=== PATIENT | female | born 1935 | race Caucasian/White ===

== ENCOUNTER 2019-09-29 02:25 | Inpatient (IN) | payer OTHER ==
[2019-09-29] VITALS (38 sets, daily range): BP systolic 73–145; BP diastolic 27–124
[~2019-09-29] VITALS: Ht 165.1 cm; Wt 65.0 kg
--- NOTE | ~2019-09-29 | EMS ---
[address] [address] EMS Patient Care Report Name: TARYN JIMENEZ Room #: REG ELICIA Snider#: [id number] Admission: 09/29/19 Attend Phys: Discharge: Date of : 34 Report #: [id number] THIS REPORT FOR: //name// Report Transmitted: 09/29/2019 04:03 EMS Care Summary [place], [place]/[facility] Incident [id number] @ 09/29/2019 01:52 Incident Location [address] [place] [address] [address] Patient TARYN JIMENEZ Female, 84 Years 1935 Patient Address [address] [place] [address] [address] [place] [address] Patient History Dementia,Breast Cancer,Pneumonia, Patient Allergies No known allergies, Patient Medications Unknown, Chief Complaint NONE Disposition Transported No Lights/[facility] Dispatch Reason Sick Person Transported To [facility] Narrative RESPONDED TO SICK AT DETENTION. UPON [facility]RIVAL EMS WAITED FOR [place] STAFF TO BRING PT OUT DUE TO COVID 19 PRECAUTIONS. PT FOUND IN WHEELCHAIR ALERT TO BASELINE, NOT IN ANY RESPIRATORY DISTRESS. PT IS SHIVERING AND HAS NO [address] [address] EMS Patient Care Report Name: TARYN JIMENEZ Room #: REG ELICIA Snider#: [id number] Admission: 09/29/19 Attend Phys: Discharge: Date of : 34 Report #: [id number] COMPLAINTS. PT DENIES SOA OR CHEST PAIN. 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 [facility] STAFF REPORT PT RECENTLY DIAGNOSED WITH PNEUMONIA AND HAS DRY COUGH BUT COULD PROVIDE NO OTHER INFORMATION ABOUT PT. PT DOES NOT FEEL FEVERISH TO THE TOUCH. PT ASSISTED TO COT. VITALS AND 3 LEAD OBTAINED. PT PLACED ON O2 VIA NC AT 4 LPM WITH SOME IMPROVEMENT. PT TRANSPORTED TO [facility]. PT TEAM LIFTED TO BED AND HANDRAILS UP. REPORT GIVEN TO NURSE. Initial Vitals @02:12P: 227,SpO2: 78, @02:16P: 131,SpO2: 84, @02:15P: 131,SpO2: 90, @02:14P: 245,SpO2: 82, @02:14P: 197,R: 20,BP: 146/99,GCS: 14,SpO2: 90,Revised Trauma: 12, @02:15P: 132,SpO2: 93, @02:08P: 73,R: 20,BP: 112/60,Pain: 0/10,GCS: 14,Glucose: 115,SpO2: 85,Revised Trauma: 12, Assessments @02:05MENTAL:Confused,Person Oriented,SKIN:HEENT:Head/Face: No Abnormalities,Neck/Airway: No Abnormalities,LUNG SOUNDS:General: No Abnormalities,ABDOMEN:General: No Abnormalities,PELVIS//GI:Incontinence,EXTREMITIES:Left Leg: Weakness,Left Arm: Weakness,Right Leg: Weakness,Right Arm: Weakness,PULSE:NEURO:No Abnormalities,@02:11MENTAL:Person Oriented,Confused,SKIN:HEENT:Head/Face: No Abnormalities,Eyes: No Abnormalities,Neck/Airway: No Abnormalities,LUNG SOUNDS:General: No Abnormalities,Left Upper: No Abnormalities,Right Upper: No Abnormalities,Left Lower: No Abnormalities,Right Lower: No Abnormalities,ABDOMEN:General: No Abnormalities,Left Upper: No Abnormalities,Right Upper: No Abnormalities,Left Lower: No Abnormalities,Right Lower: No Abnormalities,PELVIS//GI:Incontinence,EXTREMITIES:Left Arm: Weakness,Left Leg: Weakness,Right Arm: Weakness,Right Leg: Weakness,PULSE:NEURO:No Abnormalities, Impression Pneumonia Procedures @02:05ALS AssessmentResponse: UnchangedSucceeded@02:08Oxygen FlowRate: 4 Device: Nasal Cannula (NC) Response: ImprovedSucceeded@02:103-Lead ECGResponse: UnchangedSucceeded Timeline 01:49,Call Received 01:49,Dispatch Notified 01:52,Dispatched [address] [address] EMS Patient Care Report Name: TARYN JIMENEZ Room #: REG ER Agatha#: [id number] Admission: 09/29/19 Attend Phys: Discharge: Date of : 34 Report #: [id number] 01:53,En Route 01:59,On Scene 02:05,At Patient 02:05,ALS Assessment,Response: UnchangedSucceeded, 02:08,Oxygen FlowRate: 4 Device: Nasal Cannula (NC) Response: ImprovedSucceeded, 02:08,BP: 112/60 M,PULSE: 73,RR: 20 R,SPO2: 85 Ox,ETCO2: ,B,PAIN: 0,GCS: 14, 02:10,3-Lead ECG,Response: UnchangedSucceeded, 02:12,Depart Scene 02:12,BP: / M,PULSE: 227,RR: R,SPO2: 78 Ox,ETCO2: ,BG: ,PAIN: ,GCS: , 02:14,BP: / M,PULSE: 245,RR: R,SPO2: 82 Ox,ETCO2: ,BG: ,PAIN: ,GCS: , 02:14,BP: 146/99 M,PULSE: 197,RR: 20 R,SPO2: 90 Ox,ETCO2: ,BG: ,PAIN: ,GCS: 14, 02:15,BP: / M,PULSE: 131,RR: R,SPO2: 90 Ox,ETCO2: ,BG: ,PAIN: ,GCS: , 02:15,BP: / M,PULSE: 132,RR: R,SPO2: 93 Ox,ETCO2: ,BG: ,PAIN: ,GCS: , 02:16,BP: / M,PULSE: 131,RR: R,SPO2: 84 Ox,ETCO2: ,BG: ,PAIN: ,GCS: , 02:31,At Destination 02:32,Call Closed Disclaimer v1.1 Copyright 2020 [employer] This EMS Care Summary contains data elements from the applicable legal record (which may be displayed differently). It is designed to provide pertinent information for the following purposes: continuity of care, clinical quality, and state data reporting. The complete legal record is available to ED staff and administrators of the receiving hospital in [employer] Patient Tracker. All data is provided "as is."
[~2019-09-29 02:25] MED LIST: ALLEGRA ALLERG180 MG PO; APAP500 PO; ARICEPT 5 MG TAB5 MG PO; ARICEPT10 M1 PO; ARICEPT10 MG PO; BAYER CHEWABLE81 MG PO; BENADRYL25 MG PO; CELEXA 20 MG TA20 MG PO; CELEXA10 MG PO; CEPACOL SORE T1 EAC8 PO; HEMORRHOID OINT60 G1; LIPITOR20 MG PO; LOPERAMIDE 2 MG2 M1 PO; MULTIVITAMINS PO; MULTIVITAMINS1 EAC7 PO; ONDANSETRON HCL4 M2 PO; PEPCID20 MG PO; PRILOSEC20 MG PO; PROTONIX40 M1 PO; VITAMIN D 5050000 I1 PO
[2019-09-29 03:57] LABS: BE(vivo) 0.3 mmol/L (-2 to +3); HCO3 23.9 mmol/L (22.0-26.0); PCO2 35.5 mmHg (35.0-45.0); PO2 80.9 mmHg (80.0-100.0); pH 7.446 (7.360-7.450); sO2 96.4 % (92.0-98.0)
[2019-09-29 04:06] LABS: HEMATOCRIT 39.7 % (37.0-47.0); MCH 32.1 pg (26.0-34.0); MCHC 32.6 g/dL (28.0-37.0); MCV 98.6 fL (80.0-100.0); PLATELET COUNT 87 thou/uL (150-400); RBC 4.03 mil/uL (4.20-5.00); RDW 20.9 % (10.5-14.5); WBC 11.4 thou/uL (4.0-11.0)
[2019-09-29 04:15] LABS: CALCIUM 10.8 mg/dL (8.5-10.1); CREATININE 3.4 mg/dL (0.6-1.0); POTASSIUM 3.4 mmol/L (3.5-5.1)
[2019-09-29 04:24] LABS: ALBUMIN 2.1 g/dL (3.4-5.0); TOTAL BILIRUBIN 0.9 mg/dL (<0.1-1.0); TOTAL PROTEIN 6.6 g/dL (6.4-8.2); TROPONIN-I 0.14 ng/mL (<0.06)
[2019-09-29 04:29] LABS: ABSOLUTE NEUTROPHILS 10.6 thou/uL (1.4-8.2); ANISOCYTOSIS 2+
[2019-09-29 04:30] LABS: PLATELET ESTIMATE DEC; POLYCHROMASIA 1+
--- NOTE | 2019-09-29 07:53 | NUR ---
PT ARRIVED FROM THE ED AT 0615 ACCOMPANIED BY ED RN. PT ALERT, PLEASANTLY CONFUSED. PT ABLE TO IDENTIFY SELF. DENIES ANY PAIN. JUST COMPLAINS OF BEING COLD. CONTINUOSLY SHAKING/TREMULOUS. TACHYCARDIC ON THE MONITOR. LUNGS DIMINISHED AND CLEAR. DIFFICULT TO OBTAIN O2 SAT. PT'S TOES DISCOLORED PURPLE. EXTREMETIES VERY COLD. ABX AND IVF STARTED.
--- NOTE | 2019-09-29 07:59 | NUR ---
Assumed care at 0700. PT is alert and oriented to self. PT is noted to have hypotension. BP systolic 80s with a MAP <65. Levophed was started and titrated up to [address] Hamilton on unit and was notified by night RN. Mila, PT's daughter in law, was contacted at 0743. She was given passcode and an update on PT condition. Imla stated she would be point of contact for PT because "she isn't working through this whole thing." Mila stated she would contact Rui and update him of PT condition. RN also spoke with Rui Brockke who is PT's son but not listed on designated contact. RN told Rui that without the passcode he could not have any medical information and he should contact Mila or Mu Vazquez who are the designated contact. Fall precautions in place. RN will continue to monitor.
--- NOTE | 2019-09-29 08:46 | EKG ---
[facility] [place] [address] ELECTROCARDIOGRAM REPORT Name: TARYN JIMENEZ Room #: 238-P ADM IN M.R.#: [id number] Admission: 09/29/19 Attend Phys: Tim Floyd MD Discharge: Date of : 33 Report #: [id number] THIS REPORT FOR: cc: Bethel Israel MD, Srinath MD Lundgren,Paolo Edmond MD [facility] ~ THIS REPORT FOR: //name// [facility] ED Test Date: 2019-09-29 Test Time: 03:03:22 Pat Name: TARYN JIMENEZ Department: Room: [facility] Gender: F Armature Inspector: NO : 1935 Requested By: Darius Ahumada Order Number: [id number] MD: Paolo Cline Measurements Intervals [place] Rate: 132 P: 16 TX: 122 QRS: -26 QRSD: 84 T: 181 QT: 322 QTc: 477 Interpretive Statements Sinus tachycardia Nonspecific ST and T wave abnormality Baseline wander in lead(s) I,II,aVR Compared to ECG 01/24/2015 12:27:58 Atrial premature complex(es) no longer present Nonspecific change in the ST and T wave segments Electronically Signed On 09-29-2019 8:44:51 CDT by Paolo Cline [email or web address] <ELECTRONICALLY SIGNED> By: Paolo Cline MD, [facility] 09/29/1945 2 2 Paolo Cline MD, [facility] /EPI
[2019-09-29 09:48] LABS: INR 2.4; PROTIME 24.6 Seconds (9.3-11.4)
[2019-09-29 09:58] LABS: FIBRINOGEN 52.9 mg/dL (210-360)
[2019-09-29 10:32] LABS: URINE BLOOD 3+ (Negative); URINE CLARITY CLOUDY; URINE COLOR YELLOW; URINE GLUCOSE-RANDOM* NEGATIVE (Negative); URINE KETONES TRACE (Negative); URINE PROTEIN (DIPSTICK) 2+ (Negative); URINE SPECIFIC GRAVITY 1.025 (1.005-1.035)
[2019-09-29 10:34] LABS: URINE LEUKOCYTES-REFLEX 2+ (Negative); URINE NITRITE-REFLEX POSITIVE (Negative)
[2019-09-29 10:36] LABS: ICTOTEST (BILI CONFIRMATORY) Negative (Negative); URINE BILIRUBIN NEGATIVE (Negative)
[2019-09-29 10:37] LABS: SQUAMOUS >10 Many /LPF (0-3)
[2019-09-29 10:40] LABS: CASTS None Seen /LPF (None Seen); CRYSTALS None Seen /LPF (None Seen); URINE WBC-REFLEX >25 Many /HPF (0-5)
[2019-09-29 10:41] LABS: BACTERIA-REFLEX >30 Many /HPF (None Seen); URINE RBC 3-10 Few /HPF (0-2)
[2019-09-29 13:33] LABS: INR 2.7; PROTIME 27.4 Seconds (9.3-11.4)
--- NOTE | 2019-09-29 15:34 | NUR ---
VAT CONSULTED FOR A CL FOR THIS PT WITH PUI, CKD AND SEPSIS. A 6FRTLJACC PLACED RT IJ WITH TIP IN THE RT UPPER ATRIUM WITH NO ECTOPY.
[2019-09-29 15:46] LABS: BE(vivo) -3.3 mmol/L (-2 to +3); HCO3 21.6 mmol/L (22.0-26.0); PCO2 38.3 mmHg (35.0-45.0); pH 7.369 (7.360-7.450); sO2 75.9 % (92.0-98.0)
[2019-09-29 15:47] LABS: PO2 41.6 mmHg (80.0-100.0)
--- NOTE | 2019-09-29 16:36 | NUR ---
INITIAL ASSESSMENT: SW reviewed chart and spoke with attending physician. Pt was admitted from [facility] due to hypoxia. Pt is in Enhanced Isolation to r/o COVID-19. Pt with hx of dementia. MILANA spoke with pt's dtr-in-law, Mila, via phone. Introduced role of MILANA. 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 Pt is normally w/c bound at the facility. Pt is able to ambulate with a walker. Pt was not on O2 prior to admission. Plan is for pt to return to Centers when medically stable. transit planner to fax clinical info to facility tomorrow. MILANA is following to assist as needed with discharge planning.
--- NOTE | 2019-09-29 16:38 | NUR ---
FAXED CLINICAL UPDATE TO [facility] SPOKE WITH KAITLYNN IN ADM SHE RECEIVED UPDATE. DP TO FOLLOW.
[2019-09-29 17:04] LABS: CREATININE 3.4 mg/dL (0.6-1.0); POTASSIUM 3.5 mmol/L (3.5-5.1)
[2019-09-29 17:07] LABS: CALCIUM 8.7 mg/dL (8.5-10.1)
--- NOTE | 2019-09-29 17:38 | NUR ---
At [address] Givens in regards to consult for PT. RN informed Dr. Givens that the PT had only put out approximately 40 cc of urine since 0700. Provider ordered a 1000 ml bolus of 0.45% NS to be given once and he would re-evaluate the PT tomorrow morning. RN verbalized understanding. Dr. Hamilton was on unit and inserted an arterial line in the PT. Provider was successful at 2nd attempt. A small hematoma was noted around the right wrist where the first attempt was taken place. The wave form is noted to be in good standing however the arterial pressure differs greatly from the cuff pressure. Dr. Mccain was notified of this and he stated for RN to treat PT's blood pressure using the cuff. RN verbalized understanding. PT was transported to CT scan by 2 RNs and brought back to a new room. Family was notified. RN gave report to Arianna BARTLETT who verbalized understanding. Will continue to monitor.
--- NOTE | 2019-09-29 18:01 | NUR ---
RESULTS OF CT SCAN COMMUNICATED TO DR. BENOIT
--- NOTE | 2019-09-29 19:28 | NUR ---
UPDATED DR. TALBOT ON PATIENT STATUS. ORDERS TO START CVP.
[2019-09-30] VITALS (28 sets, daily range): BP systolic 91–142; BP diastolic 21–82
[2019-09-30 06:00] LABS: HEMATOCRIT 33.4 % (37.0-47.0); MCH 32.4 pg (26.0-34.0); MCHC 32.5 g/dL (28.0-37.0); MCV 99.6 fL (80.0-100.0); PLATELET COUNT 79 thou/uL (150-400); RBC 3.35 mil/uL (4.20-5.00); RDW 20.8 % (10.5-14.5); WBC 13.5 thou/uL (4.0-11.0)
--- NOTE | 2019-09-30 06:00 | NUR ---
PT RECEIVED 2 LITERS OF .5 NS FOR LOW UO AND LOW BP TONIGHT PER ORDER OF RENAL TITRATING LEVOPHED GTT. LUNGS COARSE WITH SCATTERED WHEEZING. OPTIFLOW 90 % LEVOPHED GTT CURRENTLY AT 7 MCG. 250 CC UO THIS SHIFT. 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 WELLER FOLLOWS COMMANDS. WILL CONT TO MONITOR
[2019-09-30 06:04] LABS: HEMOGLOBIN 10.9 gm/dL (12.0-15.0)
[2019-09-30 06:18] LABS: INR 1.7; PROTIME 17.4 Seconds (9.3-11.4)
[2019-09-30 06:26] LABS: CALCIUM 7.6 mg/dL (8.5-10.1); POTASSIUM 3.5 mmol/L (3.5-5.1); TROPONIN-I 0.16 ng/mL (<0.06)
[2019-09-30 07:49] LABS: ABSOLUTE NEUTROPHILS 12.6 thou/uL (1.4-8.2); ANISOCYTOSIS 2+; NUCLEATED RBCS 5 /100WBC; PLATELET ESTIMATE DECREASED; POLYCHROMASIA SLIGHT
[2019-09-30 08:27] LABS: BE(vivo) -8.4 mmol/L (-2 to +3); HCO3 17.1 mmol/L (22.0-26.0); PCO2 35.2 mmHg (35.0-45.0); PO2 77.8 mmHg (80.0-100.0); pH 7.304 (7.360-7.450); sO2 94.5 % (92.0-98.0)
[2019-09-30 14:04] LABS: ALBUMIN 1.7 g/dL (3.4-5.0); DIRECT BILIRUBIN 0.3 mg/dL (<0.1-0.2); TOTAL BILIRUBIN 0.7 mg/dL (<0.1-1.0); TOTAL PROTEIN 5.4 g/dL (6.4-8.2)
--- NOTE | 2019-09-30 15:03 | NUR ---
SW reviewed chart and spoke with attending physician. Pt's COVID-19 test was negative. Pt is currently on 15L of O2. Update provided to Centers liaison. SW is following to assist as needed with discharge planning.
[2019-09-30 17:43] LABS: BF NUCLEATED CELLS 441; BF RBC 3352
[2019-09-30 17:47] LABS: CLARITY SLIGHTLY CLOUDY; COLOR AMBER; TOTAL VOLUME 20 mL
[2019-09-30 18:57] LABS: SOURCE CHEST
[2019-09-30 18:59] LABS: BF MACROPHAGE 40; BF NEUTROPHILS 12
[2019-10-01] VITALS (50 sets, daily range): BP systolic 67–134; BP diastolic 37–80
[2019-10-01 04:39] LABS: BE(vivo) -8.4 mmol/L (-2 to +3); HCO3 15.6 mmol/L (22.0-26.0); PCO2 27.8 mmHg (35.0-45.0); PO2 62.4 mmHg (80.0-100.0); pH 7.366 (7.360-7.450); sO2 91.7 % (92.0-98.0)
[2019-10-01 05:14] LABS: APTT 36.4 Seconds (24.5-32.8); FIBRINOGEN 144.4 mg/dL (210-360); INR 1.1; PROTIME 11.2 Seconds (9.3-11.4)
[2019-10-01 05:15] LABS: ABSOLUTE NEUTROPHILS 9.1 thou/uL (1.4-8.2); BASOPHILS 0.1 % (0.0-2.0); HEMATOCRIT 32.6 % (37.0-47.0); HEMOGLOBIN 10.8 gm/dL (12.0-15.0); LYMPHOCYTES 2.1 % (24.0-44.0); MCH 32.8 pg (26.0-34.0); MCHC 33.2 g/dL (28.0-37.0); MCV 98.8 fL (80.0-100.0); MONOCYTES 5.7 % (1.0-8.0); PLATELET COUNT 82 thou/uL (150-400); POLYS 92.1 % (36.0-66.0); RDW 20.6 % (10.5-14.5); WBC 9.9 thou/uL (4.0-11.0)
--- NOTE | 2019-10-01 05:23 | NUR ---
ASSUMED CARE OF PATIENT AT 1900. CRYOPRECIPITATE INFUSED, TOLERATED WELL. WEANED O2 DOWN, BECAME CONFUSED, TACHYPNIC AND DESATTED AT 0330. PLACED BACK ON OPTIFLOW, ABGS DRAWN. RESTING MORE COMFORTABLY NOW. LEVOPHED TITRATED, SEE FLOWSHEET. WORKING TOWARDS POC GOALS.
[2019-10-01 05:27] LABS: ALBUMIN 1.7 g/dL (3.4-5.0); CALCIUM 7.8 mg/dL (8.5-10.1); CREATININE 2.5 mg/dL (0.6-1.0); PHOSPHORUS 2.6 mg/dL (2.5-4.9); POTASSIUM 3.3 mmol/L (3.5-5.1)
[2019-10-01 05:45] LABS: ALBUMIN 1.7 g/dL (3.4-5.0); DIRECT BILIRUBIN 0.1 mg/dL (<0.1-0.2); TOTAL BILIRUBIN 0.6 mg/dL (<0.1-1.0); TOTAL PROTEIN 5.5 g/dL (6.4-8.2)
--- NOTE | 2019-10-01 07:50 | NUR ---
RN assumed care at 0700. Assessment performed at 0728, see chart for further details. VSS. RN titrated levophed gtt down to 1 mcg/min. PT is alert and oriented to herself only. Stated the year was 2007, the president is a politician, and she is currently in a 3 bedroom home. PT states that she "feels nervous". RN asked what she was nervous about and PT shrugged her shoulders. Dr. Givens on unit at 0730. RN informed him of a sodium level of 134 and potassium of 3.4. Provider ordered for her IVF to be titrated to 70 mls/h and stated he would put in a supplement order. Dr. Best on unit to see PT at 0738. He stated to make sure the PT's biliary drain is being flushed BID with 10cc of NS. RN verbalized understanding. High fall risk precautions are in place. RN will continue to monitor.
[2019-10-01 08:27] LABS: SOURCE CHEST
[2019-10-01 08:28] LABS: SOURCE CHEST
[2019-10-01 08:32] LABS: SOURCE CHEST
--- NOTE | 2019-10-01 10:13 | NUR ---
PT was picking at her arterial line, biliary drain, and castillo catheter. RN attempted several times to distract PT from picking at her medical devices. RN re-oriented PT, asked her to fold towels, and turned on the television. Diversional activities were unsuccessful. Dr. Hamilton on unit to see PT. RN spoke with provider about placing mittens on the PT to help protect her lines. Provider stated okay. show design supervisor was notified at 1005. A left hand mitten was placed on PT at 1000. Education provided. RN will continue to monitor.
--- NOTE | 2019-10-01 14:01 | NUR ---
RN entered room to check on PT at 1315 and noted a half dollar size bright red drainage on the right hand mitten towards the wrist. There was also a quarter size amount of blood noted on PT's gown. RN took off the mitten and saw that the arterial line was out of place. RN immediately applied pressure with gauze. At 1332 hemostasis was obtained. The PT was cleaned up and bilateral wrist restraints were applied to PT as well as a new pair of mittens. Dr. Hamilton was paged through the answering service at [phone] to notify him of PT's condition. RN will continue to monitor.
--- NOTE | 2019-10-01 16:09 | NUR ---
RN entered room to perform 1600 assessment. RN temporarily removed restraints. PT tried to pinch nurse and tried to get out of RN's grasp. PT stated, "I'll call my buddies. You better release me!" RN educated PT about safety and restraints. PT is unable to understand teachings due to cognitive status. PT appears aggitated and refuses to drink water, reposition, or answer questions asked by staff. RN will continue to monitor.
[2019-10-01 20:54] LABS: MAGNESIUM 1.1 mg/dL (1.8-2.4); POTASSIUM 3.9 mmol/L (3.5-5.1)
[2019-10-02] VITALS (60 sets, daily range): BP systolic 84–146; BP diastolic 42–102
[2019-10-02 01:00] LABS: MAGNESIUM 2.1 mg/dL (1.8-2.4); POTASSIUM 3.9 mmol/L (3.5-5.1)
--- NOTE | 2019-10-02 01:19 | NUR ---
PATIENT INCREASINGLY CONFUSED, REMOVING RINGS. ALL RINGS PLACED IN SECURITY BAG (9 TOTAL). WILL NOTIFY FAMILY IN AM.
--- NOTE | 2019-10-02 04:47 | NUR ---
PATIENT BP SIGNIFICANTLY LOWER AT 2130, LEVOPHED GTT RESUMED TO KEEP MAP GREATER THAN 65. SEE FLOW SHEET FOR TITRATION.
[2019-10-02 05:56] LABS: HEMATOCRIT 28.2 % (37.0-47.0); HEMOGLOBIN 9.5 gm/dL (12.0-15.0); MCH 33.2 pg (26.0-34.0); MCHC 33.8 g/dL (28.0-37.0); MCV 98.5 fL (80.0-100.0); RBC 2.87 mil/uL (4.20-5.00); WBC 8.4 thou/uL (4.0-11.0)
[2019-10-02 06:16] LABS: ALBUMIN 2.3 g/dL (3.4-5.0); CREATININE 2.2 mg/dL (0.6-1.0)
[2019-10-02 09:08] LABS: BODY FLUID ALBUMIN 1.1 g/dL (Not Estab.); BODY FLUID GLUCOSE 156 mg/dL (()); BODY FLUID LDH 263 IU/L (())
[2019-10-02 14:07] LABS: BE(vivo) -8.8 mmol/L (-2 to +3); HCO3 17.3 mmol/L (22.0-26.0); PCO2 38.1 mmHg (35.0-45.0); PO2 57.6 mmHg (80.0-100.0); sO2 86.5 % (92.0-98.0)
[2019-10-02 14:08] LABS: pH 7.275 (7.360-7.450)
--- NOTE | 2019-10-02 15:08 | NUR ---
ASSUMED CARE AT 0700, ASSESSMENT AND VITAL SIGNS COMPLETED PER ICU PROTOCOL. DR. TALBOT ROUNDED THIS AM. DR. BIRMINGHAM ROUNDED THIS AM. DR. VICTORIA ROUNDED THIS AM. DR. BELLAMY ROUNDED THIS AM. DR. BELLAMY PAGED AND NOTIFIED OF PT EXPRESSING LABORED BREATHING. DR. BELLAMY AND RN DISCUSSED NECESSITY OF COMFORT CARE. DR. BELLAMY INSTRUCTED RN TO PAGE AND DISCUSS WITH DR. TALBOT WELL. RN PAGED DR. TALBOT AND UPDATED HIM ON PT'S CONDITION. DR. TALBOT SAID HE'LL CALL FAMILY AND DISCUSS PT'S CONDITION. GLEN (DAUGHTER IN LAW) CALLED RN, SAID SHE DISCUSSED PT WITH DR. TALBOT. GLEN EXPRESSED THAT DR. TALBOT NEEDS TO SPEAK WITH RAKAN (SON). RAKAN'S CELL PHONE NUMBER WAS PROVIDED TO RN BY GLEN. RN CALLED DR. TALBOT BACK AND RELAYED THE PHONE NUMBER. DR. TALBOT WILL SPEAK WITH RAKAN AND PROCEED WITH PLAN OF CARE.
[2019-10-02 18:07] LABS: HCO3 19.3 mmol/L (22.0-26.0); PCO2 29.5 mmHg (35.0-45.0); PO2 106.7 mmHg (80.0-100.0); pH 7.434 (7.360-7.450); sO2 98.1 % (92.0-98.0)
[2019-10-03] VITALS (16 sets, daily range): BP systolic 100–134; BP diastolic 48–75
[2019-10-03 04:39] LABS: ABSOLUTE NEUTROPHILS 7.2 thou/uL (1.4-8.2); BASOPHILS 0.2 % (0.0-2.0); HEMATOCRIT 28.8 % (37.0-47.0); HEMOGLOBIN 9.8 gm/dL (12.0-15.0); LYMPHOCYTES 1.6 % (24.0-44.0); MCH 33.2 pg (26.0-34.0); MCV 97.6 fL (80.0-100.0); MONOCYTES 5.4 % (1.0-8.0); PLATELET COUNT 91 thou/uL (150-400); POLYS 92.8 % (36.0-66.0); RBC 2.95 mil/uL (4.20-5.00); RDW 20.4 % (10.5-14.5); WBC 7.7 thou/uL (4.0-11.0)
[2019-10-03 05:00] LABS: FIBRINOGEN 136.1 mg/dL (210-360); INR 1.1; PROTIME 11.2 Seconds (9.3-11.4)
[2019-10-03 05:11] LABS: ALBUMIN 2.1 g/dL (3.4-5.0); CALCIUM 8.6 mg/dL (8.5-10.1); CREATININE 2.1 mg/dL (0.6-1.0); PHOSPHORUS 2.8 mg/dL (2.5-4.9); TOTAL BILIRUBIN 0.7 mg/dL (<0.1-1.0); TOTAL PROTEIN 5.3 g/dL (6.4-8.2)
[2019-10-03 05:40] LABS: HCO3 19.6 mmol/L (22.0-26.0); PCO2 30.6 mmHg (35.0-45.0); PO2 63.3 mmHg (80.0-100.0); pH 7.425 (7.360-7.450)
--- NOTE | 2019-10-03 07:28 | NUR ---
ASSUMED PATIENT CARE AT 1845. VITAL SIGNS MOSTLY STABLE WITH NURSE NOT PERCEIVING ANY PAIN OR NAUSEA ON BEHALF OF PATIENT. BREATHING STABLE ON BIPAP EVIDENCED BY ASSESSMENT AND CONTINUOUS SATURATION MONITOR. TURNS AND SKIN CARE PROVIDED FREQUENTLY. CONTINUE PLAN OF CARE.
--- NOTE | 2019-10-03 09:56 | NUR ---
Mu Vazquez called at 0932 to discuss PT condition with staff. Mu stated, "We've been discussing and we've decided to make her comfort care." RN asked Mu if he would like to speak with any of the providers and he stated, "that's not necessary but if they need to talk to me I'll give you my number." His phone number is [phone]. RN notified at 0937 of Mu's decision and provider stated he would put in comfort care orders and that he would be happy to speak with family if needed. RN sent Dr. Simpson a Recorded Future message at 0940 notifying him that Mu Vazquez decided to pursue comfort measures and Dr. Hamilton was made aware. Dr. Simpson acknowledged message at 0942. RN called Mu Vazquez at 0948 to notify him of visitor policy during this time and stated 2 visitors are allowed at a time as long as they are immediate familly and no children. Mr. Vazquez said "that won't be a problem it's just going to be my little brother Howard Vazquez and his Ros. They should be there around 4:00 PM they live in [place]." RN verbalized understanding. RN notified manager warehouse and covid quarry supervisor dimension stone of the expected visitors. Will continue to monitor.
--- NOTE | 2019-10-03 14:06 | NUR ---
SW reviewed chart and spoke with nursing and attending physician. Pt's family have chosen to initiate comfort care measures. Family will be coming in this afternoon around 1600. MILANA updated Centers liaison. SW is available to assist should needs arise.
--- NOTE | 2019-10-03 16:06 | NUR ---
RN spoke with Mila Vazquez at 1600 and asked if family had a preference on which home to use. Mila stated that the PT had everything pre-arranged with [facility] in [place], [place]. RN verbalized understanding. Will continue to monitor.
[2019-10-04] VITALS: BP 103/53
[2019-10-04 04:00] VITALS: BP 88/40
--- NOTE | 2019-10-04 05:16 | NUR ---
ASSUMED PT CARE AT 1900. PT IS UNRESPONSIVE AND ON COMFORT CARE. MORPHINE ADMINISTERED. ASSESSMENT COMPLETED AND DOCUMENTED. FALL PRECAUTION IN PLACE. CONTINUE TO MONITOR, NURSING POC.
[2019-10-04 08:00] VITALS: BP 85/33
[2019-10-04 11:54] VITALS: BP 74/46
--- NOTE | 2019-10-04 16:34 | NUR ---
PT IS ON COMFORT CARE , PT DID NOT HAVE S/S OF PAIN, RN HAD UPDATED PT'S INFORMATION , PT BP WAS CONTINUING LOW AND PT'S BREATHING IS VERY WEAKING, PT WAS AT 1430PM BY 2 RNS PRONOUNCEMENT ( PT'S BREATHING AND LIRA HAD STOPPED WORK AT 1430PM) , RN HAD CALLED HOSPITAL DR AND ALL CONSULTING PHYSICIANS ABOUT PT'S , RN HAD NOTIFIED PT'S FAMILY,RN had called nonor referral office, pt is not a candidate for organ and tissue donation, pt's body care had done at 1600pm, hospital safety officers pickler helper pt's body at 1640pm.
--- NOTE | 2019-10-06 13:08 | PATH ---
[facility] [place] [address] PATHOLOGY RPT PROCEDURE Name: TARYN JIMENEZ Room #: 245-P DIS IN M.R.#: [id number] Admission: 09/29/19 Date of : 33 Discharge: 10/04/19 Report #: [id number] Path Case #: [id number] Note [facility] Accession Number: [id number] TESTS RESULT FLAG UNITS REF RANGE LAB Clinician Provided Cytology Information No. of containers..01 Other (Miscellaneous) Source: [A] 01 RIGHT PLEURAL FLUID DIAGNOSIS: [A] 02 RIGHT PLEURAL FLUID POSITIVE FOR MALIGNANT CELLS. METASTATIC ADENOCARCINOMA (WITH INTRACELLULAR MUCIN) IS PRESENT. THIS INTERPRETATION INCLUDES EVALUATION OF A CELL BLOCK. COMMENT: Examination shows detached single markedly atypical cells with intracellular mucin. This is supported by a mucicarmine special stain which shows intracellular mucin as well as amidst a few cell groups. Most of the tumor cells are detached without gland formation. Multiple properly controlled immunohistochemical stains are performed on the cell block. The tumor cells show strong membranous reactivity within all of the cells with BerEP4. Scattered to rare cells are reactive to B72.3 or TAG72. Calretinin shows the reactive mesothelial cells in the background which are noted reactive to desmin supporting the reactive nature. CD68 shows scattered rare reactive macrophages present within the background. Dr. Nigel Eastman has seen this case and concurs with my diagnosis. Findings of this case are conveyed to Dr. Ned Simpson at approximately 11:37 am on 10/03/[address] Luís Best at 12:21 pm on the same day. (IUV:pit 10/03/2019) Pathologist ICD10: 02 J91.0 Signed out by: April Yen MD, Pathologist NPI- [id number] Performed by: Rosalba Lewis, Insole Reinforcer ([facility]) Gross description: 01 20ML, CLOUDY YELLOW, 1 TP 1 CB /LCS 10/03/2019 1147 Local FLAG LEGEND: L-Low Normal,H-High Normal,LL-Alert Low,HH-Alert High <-Panic Low,>-Panic High,A-Abnormal,AA-Critical Abnormal Performed at: [address] [address] PATHOLOGY RPT PROCEDURE Name: TARYN JIMENEZ Room #: 245-P DIS IN M.R.#: [id number] Admission: 09/29/19 Date of : 33 Discharge: 10/04/19 Report #: [id number] Path Case #: [id number] 01 COLEVANGELISTA [facility] [address] [place] [address] Patrick Mckeon MD, [address] [address] April Yen MD, Specimen Comment: A courtesy copy of this report has been sent to [phone], [phone] Specimen Comment: [phone], Specimen Comment: Report sent to ,DR ROMEOR / DR BENOIT Specimen Comment: A duplicate report has been generated due to demographic updates. Performed at: 01 [facility] [address] [place] [address] [address], [place] [id number] MD Patrick Mckeon MD Phone: [phone]
--- NOTE | 2019-10-07 10:31 | HC ---
[facility] [place] [address] CONSULTATION Name: TARYN JIMENEZ Room #: 245-P [facility] IN M.R.#: [id number] Admission: 09/29/19 Attend Phys: Kiel Mccain MD Discharge: 10/04/19 Date of : 33 Report #: [id number] THIS REPORT FOR: cc: Bethel Israel MD, Srinath MD Al-Absi,Antwon Jolley MD ~ CC: Kiel Israel DATE OF SERVICE: 09/30/2019 REASON FOR CONSULTATION: Elevated creatinine. REASON FOR PRESENTATION: Shortness of breath and hypoxia. HISTORY OF PRESENT ILLNESS: This is an 84-year-old with history of breast cancer, status post mastectomy in the past. She is also known to have hypertension. She has advanced dementia. We were not really sure about her baseline creatinine. She was sent from her nursing facility yesterday because of worsening hypoxia. She was admitted to the ICU and ruled out for COVID infection. She was found to have significant right-sided pleural effusion. Creatinine on presentation was elevated at 3.4. Her sodium was also elevated at 155. The patient appears to be in sepsis and required significant amount of IV fluid. She also required pressors. She is not able to provide me with her past medical history; however, I reviewed her medical records and it is stated that the patient carries a diagnosis of hypertension and hyperlipidemia. No nephrotoxins listed on her medications. She did have a CT of the abdomen and pelvis; however, this was noncontrasted. Primary team had asked me to assist with the acute kidney injury issues. PAST MEDICAL HISTORY: 1. Dementia. 2. Hypertension. 3. Anemia. 4. Bilateral mastectomy for breast cancer. MEDICATIONS: 1. Omeprazole. 2. Atorvastatin. 3. Famotidine. 4. Aricept. ALLERGIES: HORSE HAIR LISTED AN ALLERGY. REVIEW OF SYSTEMS: Limited due to the patient's dementia. [facility] [address] [place] [address] CONSULTATION Name: TARYN JIMENEZ Room #: [facility].#: [id number] Admission: 09/29/19 Attend Phys: Kiel Mccain MD Discharge: 10/04/19 Date of : 33 Report #: [id number] FAMILY HISTORY: Unobtainable given the patient's current mental status. SOCIAL HISTORY: Apparently, she resides in a nursing facility. No other details are available. PHYSICAL EXAMINATION: GENERAL: She is awake, in some respiratory distress. VITAL SIGNS: Temperature is 35.9, blood pressure is 142/75. HEAD AND NECK: No jugular venous distention. CHEST: Decreased air entry on the right side very limited. Rhonchi present. CARDIOVASCULAR: No rub detected. ABDOMEN: Soft. EXTREMITIES: Lower extremities, +3 edema. LABORATORY DATA: Laboratory values reviewed. White blood cell count is 13.5, hemoglobin is 10.9, platelet is 79. Sodium is down to 138, potassium is 3.5, BUN 61, creatinine is 3.0. ASSESSMENT, IMPRESSION AND PLAN: 1. Acute kidney injury. 2. Hypotension with what seems to be sepsis. 3. Urinary tract infection. 4. Right-sided pleural effusion. 5. Bilateral mastectomy. 6. Alarming findings on the CT abdomen with an adrenal mass, highly suggestive of either an adrenal carcinoma versus metastasis. 7. Hypernatremia. 8. From the renal side, the patient's renal function seems to be improving. Her serum sodium has rectified. Continue with the D5W; however, slow the rate today. 9. Continue with antibiotic coverage. 10. Discussed with the family current patient's condition. 11. Follow cultures. 12. Right-sided pleural effusion with an adrenal mass in a patient with known breast cancer, status post mastectomy, highly suggestive of an underlying malignancy and we will need to discuss with the family members scope of care. <ELECTRONICALLY SIGNED> By: Antwon Givens MD 10/07/19 1031 [id number] Antwon Givens MD /nt
--- NOTE | 2019-10-07 12:09 | HC ---
[facility] [place] [address] CONSULTATION Name: TARYN JIMENEZ Room #: [facility] M.R.#: [id number] Admission: 09/29/19 Attend Phys: Kiel Mccain MD Discharge: 10/04/19 Date of : 33 Report #: [id number] THIS REPORT FOR: cc: Bethel Israel MD, Srinath MD Gates,Luís Berman MD ~ CC: Kiel Israel DATE OF SERVICE: 09/30/2019 CONSULTING PHYSICIAN: Dr. Best. REASON FOR CONSULTATION: Cholecystitis. ASSESSMENT: 1. Cholecystitis. 2. Possible cholangitis. 3. Right-sided pneumonia. 4. Right-sided pleural effusion. 5. Acute respiratory failure, severe. 6. Septic shock. 7. DIC. 8. Lactic acidosis. 9. Acute kidney injury. 10. History of pulmonary fibrosis. 11. Encephalopathy. 12. Dementia. 13. Large left adrenal mass. 14. Thrombocytopenia, low fibrinogen, elevated INR. RECOMMENDATIONS: 1. Thank you for the consultation. I will follow along. 2. Discussed the case with Interventional Radiology and Pulmonary. Recommend proceeding with placement of percutaneous cholecystostomy drain. We did discuss placement of a PTC catheter as well, given the concern about cholangitis, we will hold off on this for now and consider it when more stable if the intrahepatic biliary ducts become dilated and still suspect cholangitis. 3. IR will also drain the right pleural effusion at the time of the perc evangelina. 4. We will order cryoprecipitate prior to the procedure as well as some more vitamin K. 5. Continue IV antibiotics and supportive therapy. 6. We will follow along closely. She is not a surgical candidate at this point. HISTORY OF PRESENT ILLNESS: The patient is a very pleasant 84-year-old female [facility] [address] [place] [address] CONSULTATION Name: TARYN JIMENEZ Room #: 245-P [facility].#: [id number] Admission: 09/29/19 Attend Phys: Kiel Mccain MD Discharge: 10/04/19 Date of : 33 Report #: [id number] who has presented with severe respiratory failure. On her CT scan, she was found to have a large right-sided pleural effusion and right-sided infiltrate. The patient was also found to have a very large distended gallbladder with findings concerning for cholecystitis. General Surgery was consulted today for evaluation. She has been in septic shock in the ICU. The patient currently denies abdominal pain, nausea or vomiting. She is having shortness of air. PAST MEDICAL HISTORY: 1. History of dementia, although the patient answering questions appropriately for me. 2. Obsessive compulsive disorder. 3. Macular degeneration. 4. Depression. 5. History of breast cancer. 6. Anemia. 7. Hypertension. 8. History of pulmonary fibrosis. PAST SURGICAL HISTORY: 1. Appendectomy. 2. Bilateral mastectomy. SOCIAL HISTORY: Denies use of alcohol or recreational drugs. She was a former smoker. FAMILY HISTORY: Denies coagulopathy. REVIEW OF SYSTEMS: CONSTITUTIONAL: No fever. No chills. HEENT: Denies blurring of vision, double vision, headaches, hearing loss, sinus drainage or sore throat. CARDIOVASCULAR: Please see above and below. RESPIRATORY: Please see above and below. GASTROINTESTINAL: Please see above and below. GENITOURINARY: Denies dysuria or hematuria or kidney stones. No urinary frequency, urgency or incontinence. MUSCULOSKELETAL: No joint pain. No muscle pain. NEUROLOGICAL: Denies tremor, stroke or seizure. HEMATOLOGIC/LYMPHATICS: Denies easy bruising, easy bleeding or enlarged lymph nodes. SKIN: No rash or ulceration. ENDOCRINE: No heat or cold intolerance PSYCHIATRIC: Denies depression, anxiety, or schizophrenia. PHYSICAL EXAMINATION: VITAL SIGNS: Temperature 36.1, pulse 115, respiratory rate 24, blood pressure [address] [address] CONSULTATION Name: TARYN JIMENEZ Room #: 245-P [facility] IN .R.#: [id number] Admission: 09/29/19 Attend Phys: Kiel Mccain MD Discharge: 10/04/19 Date of : 33 Report #: [id number] 111/68, pulse ox 93% on 50 liters and 80% FiO2. GENERAL: No apparent distress, alert and oriented x3. HEENT: PERRLA, EOMI, MMM, NCAT. NECK: Supple. No LAD. CARDIOVASCULAR: Tachycardic, unstable on vasopressors. Normal capillary refill. PULMONARY: The patient has labored breathing, tachypneic, coarse breath sounds bilaterally. ABDOMEN: suprisingly soft, mildly obese, nondistended. No guarding, rebound or rigidity. Surprisingly nontender in all 4 quadrants. EXTREMITIES: Calves soft, nontender, no edema. SKIN: No rashes or bruises. PSYCHIATRIC: Normal mood and affect. NEUROLOGICAL: Grossly intact. CN II-XII grossly intact. MUSCULOSKELETAL: 5/5 strength in upper extremities and lower extremities bilaterally. LYMPHATICS: No cervical, inguinal, or supraclavicular lymphadenopathy. LABORATORY DATA: White blood count 13.5, hemoglobin 10.9, hematocrit 33.4, platelets 79. Sodium 138, potassium 3.5, creatinine 3, calcium 7.6. Troponin 0.16. The LFTs for today are pending. IMAGING: CT of the abdomen and pelvis. IMPRESSION: 1. Marked gallbladder distention with suggestion of some possible mild pericholecystic fat stranding and fluid, concerning for cholecystitis. There is dilation of the common bile duct to the level of the pancreatic head, with no definite ductal calculi identified. 2. Large left adrenal mass measuring 5.7 cm. This is concerning for a primary adrenal malignancy. A left adrenal metastasis is also a possibility. 3. Moderate-size right pleural effusion with dense consolidated pneumonia, atelectasis in the right lower lung. There is a much smaller left pleural effusion. 4. Large hiatal hernia, which was evident previously. 5. Trace amount of free fluid in the pelvis. <ELECTRONICALLY SIGNED> By: Luís Best MD 10/07/19 [id number] Luís Best MD /nt
== END 2019-10-04 14:30 | DRG 871 ==
LOC: ER 02:25 → ICU 05:15 → EROBS 05:15 → ICU 06:11
PROVIDERS: Emergency Medicine; Hospitalist; Nurse Practitioner; Pediatrics; Radiology Diagnostic Radiology; Surgery; ADMIT Internal Medicine
PROC: 4A133B1 Monitoring of Arterial Pressure, Peripheral, Percutaneous Approach (ICD-10-PCS; principal; 2019-09-29)
PROC: 4A133J1 Monitoring of Arterial Pulse, Peripheral, Percutaneous Approach (ICD-10-PCS; principal; 2019-09-29)
PROC: 0F9430Z Drainage of Gallbladder with Drainage Device, Percutaneous Approach (ICD-10-PCS; 2019-09-30)
PROC: 0W9930Z Drainage of Right Pleural Cavity with Drainage Device, Percutaneous Approach (ICD-10-PCS; 2019-09-30)
PROC: 5A09357 Assistance with Respiratory Ventilation, Less than 24 Consecutive Hours, Continuous Positive Airway Pressure (ICD-10-PCS; 2019-10-02)
PROC: 5A09357 Assistance with Respiratory Ventilation, Less than 24 Consecutive Hours, Continuous Positive Airway Pressure (ICD-10-PCS; 2019-10-03)
DX: A41.9 Sepsis, unspecified organism (principal); R65.21 Severe sepsis with septic shock; J18.9 Pneumonia, unspecified organism; D65 Disseminated intravascular coagulation [defibrination syndrome]; J96.01 Acute respiratory failure with hypoxia; N17.0 Acute kidney failure with tubular necrosis; J90 Pleural effusion, not elsewhere classified; N39.0 Urinary tract infection, site not specified; C74.90 Malignant neoplasm of unspecified part of unspecified adrenal gland; E87.0 Hyperosmolality and hypernatremia; E87.2 Acidosis; G93.40 Encephalopathy, unspecified; K92.2 Gastrointestinal hemorrhage, unspecified; D68.9 Coagulation defect, unspecified; F03.90 Unspecified dementia, unspecified severity, without behavioral disturbance, psychotic disturbance, mood disturbance, and anxiety; F42.9 Obsessive-compulsive disorder, unspecified; H35.30 Unspecified macular degeneration; I10 Essential (primary) hypertension; F32.9 Major depressive disorder, single episode, unspecified; K81.9 Cholecystitis, unspecified; K44.9 Diaphragmatic hernia without obstruction or gangrene; K76.0 Fatty (change of) liver, not elsewhere classified; Z66 Do not resuscitate; Z20.828 Contact with and (suspected) exposure to other viral communicable diseases; Z90.13 Acquired absence of bilateral breasts and nipples; Z90.89 Acquired absence of other organs; Z79.899 Other long term (current) drug therapy; Z91.048 Other nonmedicinal substance allergy status; Z87.891 Personal history of nicotine dependence; Z03.818 Encounter for observation for suspected exposure to other biological agents ruled out
CPT/HCPCS: 10078; 85026; 85076